=== PATIENT | male | born 1950 | race Caucasian/White ===

== ENCOUNTER 2017-08-14 13:59 | Emergency (ER) | payer OTHER ==
[2017-08-14 14:09] VITALS: RESP 18; TEMP 98
[2017-08-14] MEDS ORDERED: NS 1,000 ML IV ONE (14:11)
[2017-08-14] MEDS ORDERED: HYDROmorphONE/DILAUDID 1 MG/ML INJ IVP ONE (14:11)
[2017-08-14] MEDS ORDERED: ONDANSETRON 4 MG/2 ML VIAL IVP ONE (14:11)
--- NOTE | 2017-08-14 14:11 | EDPHY ---
H & P Stated Complaint: c/o Lt flank pain rad to LLQ /Nausea since 1200 Source: Patient Exam Limitations: No limitations - Personal History Current Tetanus Diphtheria and Acellular Pertussis (TDAP): Yes - Medical/Surgical History Hx Asthma: Yes Hx Chronic Respiratory Disease: No Hx Diabetes: No Hx Cardiac Disease: No Hx Renal Disease: No Hx Cirrhosis: No Hx Alcoholism: No Hx HIV/AIDS: No Hx Splenectomy or Spleen Trauma: No Other PMH: l knee surgery - Family History Significant Family History: No pertinent family hx - Social History Alcohol Use: Sober Drug Use: None Time Seen by Provider: 08/14/17 14:07 HPI/ROS: CHIEF COMPLAINT: Left flank pain HISTORY OF PRESENT ILLNESS: The patient is a 66-year-old man with a history of hypercholesteremia only who comes to the emergency department complaining of left CVA pain that began abruptly about an hour ago. It then radiated to his abdomen left and right lower quadrants. He states that it feels like his abdominal pain is moving around. He thought that he needed to have a bowel movement but was unable to. He has not had any urinary symptoms. No fevers. He has never had anything like this before. Denies any recent trauma or injury. No nausea vomiting. No diarrhea. REVIEW OF SYSTEMS: Constitutional: denies: chills, fever, recent illness, recent injury EENTM: denies: blurred vision, double vision, nose congestion Respiratory: denies: cough, shortness of breath Cardiac: denies: chest pain, irregular heart rate, lightheadedness, palpitations Gastrointestinal/Abdominal: See HPI Genitourinary: denies: dysuria, frequency, hematuria, pain Musculoskeletal: See HPI Skin: denies: lesions, rash, jaundice, bruising Neurological: denies: headache, numbness, paresthesia, tingling, dizziness, weakness Hematologic/Lymphatic: denies: blood clots, easy bleeding, easy bruising Immunologic/allergic: denies: HIV/AIDS, transplant EXAM: GENERAL: Well-appearing, well-nourished and in no acute distress. HEAD: Atraumatic, normocephalic. EYES: Pupils equal round and reactive to light, extraocular movements intact, sclera anicteric, conjunctiva are normal. ENT: TMs normal, nares patent, oropharynx clear without exudates. Moist mucous membranes. NECK: Normal range of motion, supple without lymphadenopathy or JVD. LUNGS: Breath sounds clear to auscultation bilaterally and equal. No wheezes rales or rhonchi. HEART: Regular rate and rhythm without murmurs, rubs or gallops. ABDOMEN: Soft, nontender, normoactive bowel sounds. No guarding, no rebound. No masses appreciated. BACK: No CVA tenderness, no spinal tenderness, step-offs or deformities EXTREMITIES: Normal range of motion, no pitting or edema. No clubbing or cyanosis. NEUROLOGICAL: Cranial nerves II through XII grossly intact. Normal speech, normal gait. 5/5 strength, normal movement in all extremities, normal sensation PSYCH: Normal mood, normal affect. SKIN: Warm, dry, normal turgor, no visible rashes or lesions. (Russell Ratliff) Constitutional: Initial Vital Signs Temperature (C) 36.6 C 08/14/17 14:08 Heart Rate 40 L 08/14/17 14:08 Respiratory Rate 18 08/14/17 14:08 Blood Pressure 146/75 H 08/14/17 14:08 O2 Sat (%) 94 08/14/17 14:08 O2 Delivery Mode Room Air Allergies/Adverse Reactions: No Known Allergies Allergy (Unverified 07/02/13 15:08) Home Medications: Medication Instructions Recorded Tamsulosin HCl [Flomax 0.4 MG (*)] 0.4 mg PO DAILY #10 cap 08/14/17 Medical Decision Making - Diagnostics Imaging: Discussed imaging studies w/ deckhand clam dredge Radiologist - Diagnostics EKG Interpretation: An EKG obtained and was read and documented in trace view. Please see trace view for full reading and report. Sinus bradycardia, (Russlel Ratliff) ED Course/Re-evaluation: Patient had low heart rate between 40 and 55 at triage. We obtained an EKG that shows sinus bradycardia. He denies chest pain, palpitations or lightheadedness. 3:05 p.m. patient is provide a urine sample. Slight white blood cell count elevation. He states that he is getting over a cold. His heart rate is now 65 in the room. Will order CT scan based on urinalysis results. Care transferred to Dr. Morelos. (Russell Ratliff) Differential Diagnosis: Differential diagnosis considered but not limited to: Appendicitis, diverticulitis, renal artery dissection, kidney stone, ureterolithiasis/renal colic, urinary tract infection, pyelonephritis (Bailey Morelos) Other Provider: Patient found to have large blood in his urine negative nitrate leuk esterase and bacteria. A CT scan was ordered to evaluate for obstructive uropathy. CT scan with 3 mm stone at L4 on the left as well as mild hydronephrosis. Patient currently without pain Given a 1st dose of Flomax 0.4 mg p.o. Impression Left ureterolithiasis with renal colic Plan Home with Flomax Follow-up with PCP Urine strainer Return for high fever, vomiting, severe pain (Bailey Morelos) - Data Points Laboratory Results: Laboratory Results 08/14/17 14:28 08/14/17 14:28 Medications Given: Discontinued Medications Hydromorphone HCl (Dilaudid) 0.5 mg IVP EDNOW ONE Stop: 08/14/17 14:12 Last Admin: 08/14/17 14:45 Dose: 0.5 mg Sodium Chloride (Ns) 1,000 mls @ 0 mls/hr IV EDNOW ONE; Wide Open PRN Reason: Protocol Stop: 08/14/17 14:12 Last Admin: 08/14/17 14:44 Dose: 1,000 mls Ondansetron HCl (Zofran) 4 mg IVP EDNOW ONE Stop: 08/14/17 14:12 Last Admin: 08/14/17 14:44 Dose: 4 mg Tamsulosin HCl (Flomax) 0.4 mg PO EDNOW ONE Stop: 08/14/17 16:06 Last Admin: 08/14/17 16:33 Dose: 0.4 mg Departure - Departure Disposition: Home, Routine, Self-Care Clinical Impression: Ureterolithiasis, Kidney stone on left side Condition: Good Instructions: Kidney Stones (ED) Referrals: Nick Ferro MD [Primary Care Provider] - As per Instructions Prescriptions: Tamsulosin HCl [Flomax 0.4 MG (*)] 0.4 mg PO DAILY #10 cap
--- NOTE | 2017-08-14 14:25 | CPEKG ---
Heart Rate: 51 RR Interval: 1176 P-R Interval: 140 QRSD Interval: 96 QT Interval: 464 QTC Interval: 428 P Evarts: 53 QRS Evarts: 59 T Wave Evarts: 57 EKG Severity - ABNORMAL ECG - EKG Impression: SINUS RHYTHM EKG Impression: SUPRAVENTRICULAR BIGEMINY Electronically Signed By: Russell Ratliff 14-Aug-2017 14:28:52
[2017-08-14 14:33] LABS: PLATELET COUNT 274 10^3/uL (150-400)
[2017-08-14 14:41] LABS: PROTIME(PATIENT) 13.1 SEC (12.0-15.0)
[2017-08-14] MEDS ORDERED: TAMSULOSIN HCL 0.4 MG CAP PO ONE (16:05)
[2017-08-14 16:51] VITALS: BP 141/88; PULSE 62; O2SAT 96
== END 2017-08-14 16:49 | disposition home or self-care (01) ==
LOC: CED 13:59
DX: N20.1 Calculus of ureter (principal); N20.0 Calculus of kidney; J45.909 Unspecified asthma, uncomplicated; E86.9 Volume depletion, unspecified
CPT/HCPCS: 74176; 93005; 96361; 96374; 96375; 99285; J1170; J2405; 80048-PO; 80076-PO; 81003-PO; 81015-PO; 83690-PO; 85025-PO; 85610-PO; 85730-PO